=== PATIENT | male | born 1950 | race African-American/Black ===

== ENCOUNTER 2017-11-24 16:52 | Emergency (ER) | payer OTHER ==
[2017-11-24 19:07] LABS: Urine Appearance Clear; Urine Blood Negative (Negative); Urine Color Amber; Urine Ketones Negative (Negative); Urine Protein Negative (Negative); Urine Urobilinogen Positive (Negative)
[2017-11-24] MEDS ORDERED: Ciprofloxacin TAB* 500 MG PO ONE ×2 (19:12→19:16)
[2017-11-24 19:40] VITALS: BP 194/98
--- NOTE | 2017-11-25 21:19 | ED ---
Kena Lemons Rebecca, scribed for Donte Briones MD on 11/24/17 at 1728 . GI/ HPI - HPI Summary HPI Summary: Pt is a 67 y/o M who presents to ED c/o dysuria, increased urinary frequency, with decreased urine output, and penile pain. Pt reports that beginning yesterday, he has had increased urinary frequency, voiding small amount each time. Had to get up 8x in the night to urinate. Last urinated this morning at 0800, trying again at 1400 but he voided very little. Describes associated pain as pressure/aching, located at the tip of the penis. On triage, pain was severe , ranked 9/10. Sx aggravated and alleviated by nothing. He was referred by a nurse at the [facility] with a Dx of urinary retention to come to [facility] [place] ED for further workup. - History of Current Complaint Chief Complaint: EDUrogenitalProblems Time Seen by Provider: 11/24/17 17:07 Stated Complaint: UROGENITAL PROBLEMS Hx Obtained From: Patient Onset/Duration: Started Days Ago - Yesterday, Still Present Current Severity: Severe Pain Intensity: 9 Additional Locations for Males: Penis - Tip Pain Characteristics: Aching, Pressure Aggravating Factor(s): Nothing Alleviating Factor(s): Nothing PMH/Surg Hx/FS Hx/Imm Hx Cardiovascular History: Reports: Hx Hypertension Infectious Disease History: No Infectious Disease History: Denies: Traveled Outside the [place] in Last 30 Days - Family History Known Family History: Positive: Hypertension Review of Systems Negative: Fever Positive: dysuria, frequency - Increased, pain - Penile, other - Decreased urine output All Other Systems Reviewed And Are Negative: Yes Physical Exam - Summary Physical Exam Summary: VITAL SIGNS: Reviewed. GENERAL: Patient is a well-developed and nourished male who is lying comfortable in the stretcher. ~Patient is not in any acute respiratory distress. HEAD AND FACE: Normocephalic and atraumatic. EYES: PERRLA, EOMI x 2, No injected conjunctiva. EARS: Hearing grossly intact. Ear canals and tympanic membranes are WNL. MOUTH: Oropharynx within normal limits. NECK: Supple, trachea is midline, no adenopathy, no JVD. CHEST: Symmetric, no tenderness at palpation LUNGS: Clear to auscultation bilaterally. No wheezing or crackles. CVS: RRR, S1 and S2 present, no murmurs or gallops appreciated. ABDOMEN: Soft, non-tender. Distended. Positive bowel sounds. No rebound no guarding, and no masses palpated. No abdominal bruit or pulsations. EXTREMITIES: FROM in all major joints, no edema, no cyanosis or clubbing. NEURO: Alert and oriented x 3. No acute neurological deficits. Speech is normal. SKIN: Dry and warm, no rashes : Circumcised penis, both testicles are descended. No masses are appreciated. Positive cremasteric reflex. Triage Information Reviewed: Yes Vital Signs On Initial Exam: Initial Vitals Temp Pulse Resp BP Pulse Ox 97.8 F 72 16 151/92 95 11/24/17 16:57 11/24/17 16:57 11/24/17 16:57 11/24/17 16:57 11/24/17 16:57 Vital Signs Reviewed: Yes Diagnostics - Vital Signs Vital Signs Temp Pulse Resp BP Pulse Ox 11/24/17 16:57 97.8 F 72 16 151/92 95 - Laboratory Lab Results: Lab Results 11/24/17 Range/Units 18:54 Urine Color [place] Urine Appearance Clear Urine pH 5.0 (5-9) Ur Specific [place] 1.020 (1.010-1.030) Urine Protein Negative (Negative) Urine Ketones Negative (Negative) Urine Blood Negative (Negative) Urine Nitrate Positive A (Negative) Urine Bilirubin Negative (Negative) Urine Urobilinogen Positive A (Negative) Ur Leukocyte Esterase Negative (Negative) Urine WBC (Auto) Trace(0-5/hpf) (Absent) Urine RBC (Auto) 1+(3-5/hpf) A (Absent) Urine Bacteria Absent (Absent) Urine Glucose Negative (Negative) Lab Statement: Any lab studies that have been ordered have been reviewed, and results considered in the medical decision making process. Re-Evaluation - Re-Evaluation First Eval Re-Evaluation Time: 19:18 Comment: Discussed results and D/C plan with the pt. GIGU Course/Dx - Course Assessment/Plan: This patient is a 67-year-old male who presents to the emergency department with a chief complaint of burning on urination and sometimes intermittent urinary retention. Patient reports that he was able to urinate freely at 7 AM but at 2 PM he had some trouble and he was just clearing. He denies any penile discharge, he denies any lower abdominal distention of pressure. The patient was able to urinate in the ER, therefore he doesnt have any urinary retention. Also the bladder scan only showed 200 cc of urine before he urinated. After he urinated it was only 25 cc. He was given ciprofloxacin for UTI. She requested a urology referral since he is having issues urinating special ed nighttime. I discussed all the findings and test results with the patient. Patient was instructed to return to the emergency room immediately if any of the symptoms return or worsens. Plan of care was discussed with the patient and understands and agrees. All questions were answered at patient satisfaction. There were no further complaints or concerns. Lung exam before discharge: CTA B/L. Good air exchange. No wheezing or crackles heard. CVS: S1 and S2 present. No murmurs appreciated. Patient is alert and oriented x 3. Patient is hemodynamically stable. Patient will be discharged home with follow up PCP in the next 2-3 days - Diagnoses Provider Diagnoses: UTI (urinary tract infection) Discharge - Sign-Out/Discharge Documenting (check all that apply): Discharge/Admit/Transfer - Discharge - Discharge Plan Condition: Stable Disposition: HOME Prescriptions: Ciprofloxacin TAB* [Cipro 500 MG TAB*] 500 mg PO BID #10 tab Patient Education Materials: Urinary Tract Infection in Men (ED) Referrals: Rupert Meek MD [Primary Care Provider] - 3 Days Jim Murdock MD [Medical Doctor] - 3 Days Additional Instructions: RETURN TO ED FOR ANY NEW OR WORSENING SYMPTOMS. - Billing Disposition and Condition Condition: STABLE Disposition: HOME The documentation as recorded by the Kena ledezma Rebecca accurately reflects the service I personally performed and the decisions made by me, Donte Briones MD.
== END 2017-11-24 20:00 | disposition home or self-care (01) ==
LOC: ED 16:52
DX: N39.0 Urinary tract infection, site not specified (principal)
CPT/HCPCS: 81003; 81015; 87086; 99282; A9270-GY

== ENCOUNTER 2019-06-29 12:16 | Emergency (ER) | payer OTHER ==
[2019-06-29] MEDS: EPINEPHrine,Rac 2.25% NEB.SOL* 0.5 ML INH ONE (12:31)
[2019-06-29 12:56] LABS: ABS Lymphocytes 0.6 10^3/ul (1.0-4.8); ABS Monocytes 0.1 10^3/ul (0-0.8); Eosinophil % 0.1 %; Hematocrit 37 % (42-52); Lymphocyte % 6.5 %; Mean Corpuscular HGB Conc 33 g/dL (31-36); Mean Corpuscular Hemoglobin 29 pg (27-31); Mean Corpuscular Volume 87 fL (80-94); Mean Platelet Volume 7.7 fL (7.4-10.4); Platelet Count 279 10^3/uL (150-450); Red Blood Count 4.18 10^6 /uL (4.18-5.48); Red Cell Distribution Width 14 % (10-15); White Blood Count 8.6 10^3/uL (3.5-10.8)
--- NOTE | 2019-06-29 13:05 | ED ---
Shortness of Breath - HPI Summary HPI Summary: This pt is a 70 Y/O M presenting to [facility] after feeling weak, fatigued, and having a continuos episode of SOB while leaving [facility] after receiving chemotherapy at 1205 today. CAT team was called and found that the pt was visibly SOB with a wet cough and breathing. He states that he was feeling weak, SOB, and confused. He denies a fever, headache, and N/V. He states no aggravating or alleviating factors. He states that he has newly been diagnosed with lung CA. He has a SHx of smoking cigarettes everyday. - History of Current Complaint Chief Complaint: EDShortnessOfBreath Time Seen by Provider: 06/29/19 12:21 Hx Obtained From: Patient Onset/Duration: Sudden Onset Timing: Constant Current Severity: Moderate Aggravating Factors: Nothing Alleviating Factors: Nothing Associated Signs & Symptoms: Negative - fever, headache, and N/V, Cough ( Productive), Wheezing - Allergy/Home Medications Allergies/Adverse Reactions: Allergies Allergy/AdvReac Type Severity Reaction Status Date / Time No Known Allergies Allergy Verified 06/29/19 12:21 Home Medications: Home Medications Hydrocodone/Acetaminophen [[place]vere 7.5-325 Tablet] 1 each PO TID PRN 06/29/19 [ History Confirmed 06/29/19] Magnesium Oxide TAB* [MagOx 400 TAB*] 400 mg PO BID 06/29/19 [History Confirmed 06/29/19] Nabumetone TAB* [Relafen TAB*] 750 mg PO BID PRN 06/29/19 [History Confirmed 08/17] Potassium Chlor TAB* [Klor Con ER TAB*] 20 meq PO DAILY 06/29/19 [History Confirmed 06/29/19] PMH/Surg Hx/FS Hx/Imm Hx Previously Healthy: Yes Endocrine/Hematology History: Reports: Other Endocrine/Hematological Disorders - HLD Cardiovascular History: Reports: Hx Hypertension Respiratory History: Denies: Hx Asthma, Hx Chronic Obstructive Pulmonary Disease (COPD) Infectious Disease History: No Infectious Disease History: Denies: Traveled Outside the [place] in Last 30 Days - Family History Known Family History: Positive: Hypertension - Social History Alcohol Use: Weekly Alcohol Amount: drank several beers Wednesday Hx Substance Use: No Substance Use Type: Reports: None Hx Tobacco Use: Yes Smoking Status (MU): Current Every Day Smoker Review of Systems Positive: Fatigue. Negative: Fever Positive: Shortness Of Breath, Cough - wet Negative: Vomiting, Nausea Positive: Weakness. Negative: Headache All Other Systems Reviewed And Are Negative: Yes Physical Exam - Summary Physical Exam Summary: Appearance: The patient is well-nourished in no acute distress and in no acute pain. Skin: The skin is warm and dry and skin color reflects adequate perfusion. HEENT: The head is normocephalic and atraumatic. The pupils are equal and reactive. The conjunctivae are clear and without drainage. Nares are patent and without drainage. Mouth reveals moist mucous membranes and the throat is without erythema and exudate. The external ears are intact. The ear canals are patent and without drainage. The tympanic membranes are intact. Neck: The neck is supple with full range of motion and non-tender. There are no carotid bruits. There is no neck vein distension. Respiratory: Chest is non-tender. Rhoncors sounds in lungs, difficult to hear anything else, however he can speak in complete sentences Cardiovascular: Heart is regular rate and rhythm. There is no murmur or rub auscultated. There is no peripheral edema and pulses are symmetrical and equal. Abdomen: The abdomen is soft and non-tender. There are normal bowel sounds heard in all four quadrants and there is no organomegaly palpated. Musculoskeletal: There is no back tenderness noted. Extremities are non-tender with full range of motion. There is good capillary refill. There is no peripheral edema or calf tenderness elicited. Neurological: Patient is alert and oriented to person, place and time. The patient has symmetrical motor strength in all four extremities. Cranial nerves are grossly intact. Deep tendon reflexes are symmetrical and equal in all four extremities. Psychiatric: The patient has an appropriate affect and does not exhibit any anxiety or depression. Triage Information Reviewed: Yes Vital Signs On Initial Exam: Initial Vitals Temp Pulse Resp BP Pulse Ox 97.0 F 76 20 184/105 96 06/29/19 12:17 06/29/19 12:17 06/29/19 12:17 06/29/19 12:17 06/29/19 12:17 Vital Signs Reviewed: Yes Procedures - Sedation Patient Received Moderate/Deep Sedation with Procedure: No Diagnostics - Vital Signs Vital Signs Temp Pulse Resp BP Pulse Ox 06/29/19 12:36 68 18 100 06/29/19 12:25 73 19 145/86 98 06/29/19 12:21 76 13 97 06/29/19 12:17 97.0 F 76 20 184/105 96 - Laboratory Lab Results: Lab Results 06/29/19 Range/Units 12:42 WBC 8.6 (3.5-10.8) 10^3/uL RBC 4.18 (4.18-5.48) 10^6 /uL Hgb 12.0 L (14.0-18.0) g/dL Hct 37 L (42-52) % MCV 87 (80-94) fL MCH 29 (27-31) pg MCHC 33 (31-36) g/dL RDW 14 (10-15) % Plt Count 279 (150-450) 10^3/uL MPV 7.7 (7.4-10.4) fL Neut % (Auto) 92.2 % Lymph % (Auto) 6.5 % [place] % (Auto) 1.1 % Eos % (Auto) 0.1 % Baso % (Auto) 0.1 % Absolute Neuts (auto) 8.0 H (1.5-7.7) 10^3/ul Absolute Lymphs (auto) 0.6 L (1.0-4.8) 10^3/ul Absolute Monos (auto) 0.1 (0-0.8) 10^3/ul Absolute Eos (auto) 0.0 (0-0.6) 10^3/ul Absolute Basos (auto) 0.0 (0-0.2) 10^3/ul Absolute Nucleated RBC 0.0 10^3/ul Nucleated RBC % 0.0 Result Diagrams: 06/29/19 12:42 06/29/19 12:42 Lab Statement: Any lab studies that have been ordered have been reviewed, and results considered in the medical decision making process. - Radiology CXR Radiology Interpretation Completed By: Radiologist Summary of Radiographic Findings: AGAIN NOTED IS A RIGHT UPPER LUNG MASS WITH MEDIASTINAL LYMPHADENOPATHY. ED physician has reviewed this report. - CT Chest/Thorax CTA CT Interpretation Completed By: Radiologist Summary of CT Findings: 1. SLIGHTLY LIMITED EXAM, NO EVIDENCE FOR PULMONARY EMBOLISM. 2. LARGE RIGHT UPPER LOBE MASS AND PULMONARY NODULES CONSISTENT WITH THE PATIENT'S HISTORY. OF LUNG CARCINOMA. 3. LARGE MEDIASTINAL MASS ENCASING THE RIGHT MAIN PULMONARY ARTERY AND CAUSING. COMPRESSION AND SEVERE NARROWING OF THE TRACHEA AND RIGHT MAINSTEM BRONCHUS. ED physician has reviewed this process. - EKG 1244 Cardiac Rate: NL - 64 BPM EKG Rhythm: Sinus Rhythm ST Segment: Normal Ectopy: None Summary of EKG Findings: Normal sinus rhythm at 64 BPM, normal ST, no ectopy, no STEMI. Interpreted by Dr. Coulter, 06/29/2019 1247. Course/Dx - Course Course Of Treatment: Mr. Haq short of breath and hypoxic on arrival to the department. He had collapsed in the hallways in the hospital. He was kept on Vapotherm until he recovered and gradually transferred over to regular oxygen. As long as he stays quiet in the gurney is comfortable on nasal cannula. CT of his chest was obtained which shows that his mediastinal lymphadenopathy is severely compressing his lower trachea and right mainstem bronchus. I spoke with Dr. Narayanan recommended transfer for stent. I spoke with [facility] which does not do that. I spoke with [facility] who is full right now. I spoke with [facility] who is likewise full. I spoke with [facility] in [facility] in [place] who summarily refuse. I spoke with [facility] and Dr. Kenney of cardiothoracic surgery accepted transfer the patient spoke with Dr. Gaxiola in the emergency department. I think the patient is an urgent transfer but can go by ground on oxygen. - Diagnoses Provider Diagnoses: Airway obstruction, Mediastinal mass - Critical Care Time Critical Care Time: 30-74 min Discharge ED - Sign-Out/Discharge Documenting (check all that apply): Patient Departure - transferred to [facility] - Discharge Plan Condition: Stable Disposition: TRANS HIGHER LVL OF CARE FAC Referrals: Rupert Meek MD [Primary Care Provider] - - Billing Disposition and Condition Condition: STABLE Disposition: Trans Higher Lvl of Care Fac - Attestation Statements Document Initiated by Scribe: Yes Documenting Scribe: Chano Bagley Provider For Whom Cher is Documenting (Include Credential): Mario Coulter MD Scribe Attestation: Chano Lemons, scribed for Mario Coulter MD on 06/29/19 at 2051. Scribe Documentation Reviewed: Yes Provider Attestation: The documentation as recorded by the Chano ledezma accurately reflects the service I personally performed and the decisions made by me, Mario Coulter MD Status of Scribe Document: Viewed Consult Consult: Dr. Briseno, Oncology, was consulted at 1349 about admission to [facility] [place]. Briseno stated that she will talk with the produce team lead and recommended a Chest/Thorax CTA. After the chest/thorax CTA interpretation, Angi Briseno was consulted again at 1604 who recommended transferring the pt for further care. [facility] called at 1650 and stated that they were full and were unable to accept the pt. [facility] will be contacted to set up transfer. [facility] called at 1657 and began the transfer process. Dr. Ortega, surgery, from [facility], called at 1756, stated that he wanted to discuss the pt with Dr. Briseno prior to making a decision on accepting the pt. Dr. Ortega, surgery, from [facility], called at 1800, declined acceptance due to the pt needing stents. He recommended [place] and [facility]. Dr. Kenney, cardiothoraccic surgeon, and Dr. Ybarra, ED physician, accepts the pt for transfer to [facility] at 2026.
[2019-06-29 13:20] LABS: Albumin 4.2 g/dL (3.2-5.2); Albumin/Globulin Ratio 1.5 (1-3); BUN/Creatinine Ratio 20.5 (8-20); Calcium 8.3 mg/dL (8.6-10.3); EGFR African American 128.2 (>60); EGFR Non-African American 105.9 (>60); Globulin 2.8 g/dL (2-4); Potassium 4.1 mmol/L (3.5-5.0); Total Bilirubin 0.8 mg/dL (0.2-1.0)
[2019-06-29 13:28] LABS: INR 0.97 (0.82-1.09)
[2019-06-29] MEDS: Iohexol 350* (CONTRAST) 500 ML MDV IV ONE (15:30)
[2019-06-29] MEDS: Dexamethasone IV* 4 MG/ML 5 ML VIAL (20 MG) IVPB ONE (19:15)
[2019-06-29 20:50] VITALS: BP 168/81
== END 2019-06-29 21:32 | disposition short-term general hospital (02) ==
LOC: ED 12:16
DX: J98.8 Other specified respiratory disorders (principal); C38.1 Malignant neoplasm of anterior mediastinum; E78.5 Hyperlipidemia, unspecified; I10 Essential (primary) hypertension; F17.200 Nicotine dependence, unspecified, uncomplicated; Z79.899 Other long term (current) drug therapy
CPT/HCPCS: 36415; 71045; 71275; 80053; 83605; 84484; 85025; 85379; 85610; 87040; 93005; 96374; 99285; A9270-GY; J1100; Q9967

== ENCOUNTER 2019-07-29 21:42 | Emergency (ER) | payer MEDICARE, OTHER ==
[~2019-07-29 21:42] MED LIST: EPINEPHrine SYR 0.1MG/ML* SYRINGE ONE
[2019-07-29 23:29] LABS: Hematocrit 25 % (42-52); Hemoglobin 8.4 g/dL (14.0-18.0); Mean Corpuscular HGB Conc 33 g/dL (31-36); Mean Corpuscular Hemoglobin 29 pg (27-31); Mean Corpuscular Volume 88 fL (80-94); Mean Platelet Volume 6.7 fL (7.4-10.4); Platelet Count 136 10^3/uL (150-450); Red Cell Distribution Width 14 % (10-15); White Blood Count 1.2 10^3/uL (3.5-10.8)
[2019-07-29 23:34] LABS: INR 1.74 (0.82-1.09)
--- OUTSIDE RECORDS SUMMARY | 2019-07-29 23:46 | XMS REPORT | Summary of Care ---
:05/23/1949 Author Organization [facility] Address [address] [place] [address] Care Team Providers Name Role Phone Rupert Meek MD Primary Care Provider Encounter Details Date Type Department Care Team Description 06/29/2019 Hospital Encounter [address] [id number] Allergies Not on Filedocumented as of this encounter (statuses as of 07/14/2019) Medications Not on filedocumented as of this encounter (statuses as of 07/14/2019) Active Problems Not on filedocumented as of this encounter (statuses as of 07/14/2019) Social History Tobacco Use Types Packs/Day Years Used Date Never Assessed Sex Assigned at Date Recorded Not on file Job Start Date Occupation Industry Not on file Not on file Not on file Travel History Travel Start Travel End No recent travel history available. documented as of this encounter Last Filed Vital Signs Not on filedocumented in this encounter Plan of Treatment Not on filedocumented as of this encounter Results Not on filedocumented in this encounter
--- NOTE | 2019-07-29 23:47 | ED ---
Respiratory - HPI Summary HPI Summary: This patient is a 70 year old M presenting to [facility] by EMS with a chief complaint of intermittent hemoptysis since prior to arrival. Pt in ED seen by Dr. Coulter on Jun 29, 2019. Pt was very short of breath, and was found to have a large mediastinal lymphadenopathy is severely compressing his lower trachea and right mainstem bronchus. Pt was transferred to [facility] for a stent. Today pt reports that his throat was sore and felt raw, and he was forcing himself to eat as much as he could. but he could not eat meat. that hurt his throat, he was eating fruit and soft foods. Afterwards Pt threw up food , and then 20 minutes later coughed up blood. Patient denies fever, diarrhea. Pt reports two days ago he was placed on potassium and after a nurse gave him that medication mixed with juice he threw up right away. After that the nurse practitioner placed him on anti-nausea medication. Pt has been out of the hospital for 3 days and has [facility]. Pt has been receiving chemo and radiation for lung cancer. Per triage, the patient rates the pain 3/10 in severity. he has hemoptysis during history. - History of Current Complaint Chief Complaint: EDShortnessOfBreath Stated Complaint: DIFFICULTY BREATHING/COUGHING UP BLOOD PER EMS Time Seen by Provider: 07/29/19 22:48 Hx Obtained From: Patient Onset/Duration: Sudden Onset, Still Present Timing: Intermittent Episodes Lasting: Initial Severity: Mild Current Severity: Mild Pain Intensity: 3 Character: Cough (Productive) Sputum Color: Red (Blood) Aggravating Factor(s): Nothing Alleviating Factor(s): Nothing Associated Signs and Symptoms: Hemoptysis - Allergy/Home Medications Allergies/Adverse Reactions: Allergies Allergy/AdvReac Type Severity Reaction Status Date / Time No Known Allergies Allergy Verified 06/29/19 12:21 PMH/Surg Hx/FS Hx/Imm Hx Endocrine/Hematology History: Reports: Other Endocrine/Hematological Disorders - HLD Denies: Hx Diabetes Cardiovascular History: Reports: Hx Hypertension Respiratory History: Denies: Hx Asthma, Hx Chronic Obstructive Pulmonary Disease (COPD) - Cancer History Cancer Type, Location and Year: LUNG - Immunization History Date of Influenza Vaccine: Fall 2018 Infectious Disease History: No Infectious Disease History: Denies: Traveled Outside the [place] in Last 30 Days - Family History Known Family History: Positive: Hypertension - Social History Alcohol Use: None Alcohol Amount: drank several beers Wednesday Hx Substance Use: No Substance Use Type: Reports: None Hx Tobacco Use: Yes Smoking Status (MU): Former Smoker - Additional Comments History Additional Comments: PMHx : Lung Cancer Home Medications Medication Instructions Recorded Confirmed Type Atorvastatin* [Lipitor*] 80 mg PO DAILY 04/27/18 06/29/19 History Carvedilol TAB* [Coreg TAB*] 12.5 mg PO DAILY 04/27/18 06/29/19 History Lisinopril TAB* [Prinivil TAB*] 40 mg PO DAILY 04/27/18 06/29/19 History Mesalamine (NF) [Apriso (NF)] 0.375 gm PO DAILY 04/27/18 06/29/19 History Multivitamins/Minerals TAB* 1 tab PO DAILY 04/27/18 06/29/19 History [Theragran/minerals TAB*] Pantoprazole TAB * [Protonix TAB 40 mg PO DAILY 04/27/18 06/29/19 History (NF)] QUEtiapine TAB* [Seroquel 25 MG 25 mg PO BEDTIME 04/27/18 06/29/19 History TAB*] amLODIPine TAB* [Norvasc 5 mg TAB*] 10 mg PO DAILY 04/27/18 06/29/19 History Hydrocodone/Acetaminophen [[place] 1 each PO TID PRN 06/29/19 06/29/19 History 7.5-325 Tablet] Magnesium Oxide TAB* [MagOx 400 400 mg PO BID 06/29/19 06/29/19 History TAB*] Nabumetone TAB* [Relafen TAB*] 750 mg PO BID PRN 06/29/19 06/29/19 History Potassium Chlor TAB* [Klor Con ER 20 meq PO DAILY 06/29/19 06/29/19 History TAB*] Review of Systems Negative: Fever Positive: Sore Throat Positive: Other - hemoptysis Negative: Diarrhea All Other Systems Reviewed And Are Negative: Yes Physical Exam - Summary Physical Exam Summary: General: Obese elderly male, appears in mild respiratory discomfort. Cough productive of thick blood sputum during physical exam HEENT: Normocephalic, Atraumatic. Eyes: Conjuctiva normal, PERRL. Oropharynx: Clear, mucous membranes moist, (-) exudates. Neck: Soft, FROM, (-) lymphadenopathy, (-) thyromegaly, (-) JVD. Cardiovascular: Normal sinus rhythm, (-) murmur. Lungs: Decreased breath sound bilaterally with respiratory wheezing (-) rales, ( -) rhonchi. Abdomen: Soft, non-tender, non-distended, (-) organomegaly, normal bowel sounds. Back: (-) CVA tenderness Extremities: +1 lower extremity edema. Skin: Warm, dry, (-) rash. Neuro: Alert and oriented x3, moves all extremities equally. No ataxia. No gait disturbance. No sensory deficit. No amnesia. Psychiatric: Mood normal, affect normal. Triage Information Reviewed: Yes Vital Signs On Initial Exam: Initial Vitals Temp Pulse Resp BP Pulse Ox 97.4 F 102 20 111/75 96 07/29/19 21:45 07/29/19 21:45 07/29/19 21:45 07/29/19 21:45 07/29/19 21:45 Vital Signs Reviewed: Yes Procedures - Sedation Patient Received Moderate/Deep Sedation with Procedure: No Diagnostics - Vital Signs Vital Signs Temp Pulse Resp BP Pulse Ox 07/29/19 22:32 100 96/71 96 07/29/19 22:01 101 126/74 96 07/29/19 22:00 103 96 07/29/19 21:45 97.4 F 102 20 111/75 96 - Laboratory Lab Results: Lab Results 07/29/19 07/29/19 Range/Units 23:09 23:09 WBC 1.2 L (3.5-10.8) 10^3/uL RBC 2.90 L (4.18-5.48) 10^6 /uL Hgb 8.4 L (14.0-18.0) g/dL Hct 25 L (42-52) % MCV 88 (80-94) fL MCH 29 (27-31) pg MCHC 33 (31-36) g/dL RDW 14 (10-15) % Plt Count 136 L (150-450) 10^3/uL MPV 6.7 L (7.4-10.4) fL Neut % (Auto) Pending Lymph % (Auto) Pending [place] % (Auto) Pending Eos % (Auto) Pending Baso % (Auto) Pending Absolute Neuts (auto) Pending Absolute Lymphs (auto) Pending Absolute Monos (auto) Pending Absolute Eos (auto) Pending Absolute Basos (auto) Pending Absolute Nucleated RBC Pending Nucleated RBC % Pending INR (Anticoag Therapy) 1.74 H (0.82-1.09) Result Diagrams: 07/29/19 23:09 07/29/19 23:09 Lab Statement: Any lab studies that have been ordered have been reviewed, and results considered in the medical decision making process. - Radiology CXR Radiology Interpretation Completed By: ED Physician Summary of Radiographic Findings: CXR reveals per ED physician no acute changes , widened mediastinum, no obvious infiltrate or pleural effusion. Pending official radiology report. - EKG 2238 Cardiac Rate: NL EKG Rhythm: Sinus Rhythm Summary of EKG Findings: EKG at 2238 reveals normal sinus rhythm with rate of 97 BPM, ST depression in V4. No STEMI. This EKG was reviewed and interpreted by Dr. Santamaria. Re-Evaluation - Re-Evaluation First Eval Re-Evaluation Time: 00:22 Comment: IO placed in left anterior tibia Disposition - Course Course Of Treatment: 70-year-old male sent from rehabilitation for coughing up blood. Initially patient was not able to differentiate whether he was coughing up blood or throwing up blood. He recently was transferred from this hospital to [facility] due to a large mediastinal mass that was compressing his trachea and right main bronchus. He was sent there for stent placement. Patient states he was discharged 3 days ago to rehabilitation locally. Today he noted a sore throat. Was avoiding meat but eating soft foods earlier today. Then had episode of vomiting shortly thereafter. Then started coughing up blood. He has episode of coughing during history bringing up bloody sputum. No fevers. He is just slightly tachycardic upon arrival with pulse rate less than 110. he has normal respirations. Does not appear to be septic. on physical exam he has coarse breath sounds bilaterally. rhonchorous throughout. Wheezes. workup ordered. While awaiting laboratory and chest x-ray, patient was requesting nurse to help him urinate. She was giving him a urinal. He then had a massive amount of hemorrhage with coughing and went unresponsive. Lost control of urine. heart rate became bradycardic. Continue to [place] down till he was asystolic. no pulses appreciated and CPR was started. patient's IV failed to work. IO was placed in the left tibia. epinephrine was given. CPR was continued. Patient remained asystolic. No shockable rhythm. No response to epinephrine or fluids. resuscitation was stopped at 0033. I spoke with patient's next of kin, broth Matheus in [place]. Patient lives in [place]. title insurance examiner was called. Body was placed on hold. - Differential Dx - Cardiopulmonary Differential Diagnoses - Cardiopulmonary: Atrial Flutter - Diagnoses Provider Diagnoses: Massive hemoptysis, Cardiopulmonary arrest During the Visit The Following Alert/Code Occurred: ABC Alert - 00:25 - Physician Notifications Discussed Care Of Patient With: Matheus Cancino - brother in [place] Time Discussed With Above Provider: 00:38 Instructed by Provider To: Other Discharge ED - Sign-Out/Discharge Documenting (check all that apply): Patient Departure - - 00:33 - Discharge Plan Condition: Disposition: Referrals: Rupert Meek MD [Primary Care Provider] - - Billing Disposition and Condition Condition: Disposition: - Attestation Statements Document Initiated by Scribe: Yes Documenting Scribe: Marina Harrington Provider For Whom Scribe is Documenting (Include Credential): Dr. Meghan Santamaria MD Scribe Attestation: Marina Lemons scribed for Dr. Meghan Santamaria MD on 07/30/19 at 0607. Scribe Documentation Reviewed: Yes Provider Attestation: The documentation as recorded by the Marina ledezma accurately reflects the service I personally performed and the decisions made by me, Dr. Meghan Santamaria MD Status of Scribe Document: Viewed
[2019-07-29 23:50] LABS: Albumin 3.4 g/dL (3.2-5.2); BUN/Creatinine Ratio 17.4 (8-20); Calcium 8.6 mg/dL (8.6-10.3); EGFR African American 106.1 (>60); EGFR Non-African American 87.7 (>60); Globulin 3.5 g/dL (2-4); Potassium 3.6 mmol/L (3.5-5.0); Total Bilirubin 0.5 mg/dL (0.2-1.0); Total Protein 6.9 g/dL (6.4-8.9)
[2019-07-29 23:51] LABS: Troponin I 0.01 ng/mL (<0.03)
[2019-07-29 23:57] LABS: ABS Lymphocytes 0.1 10^3/ul (1.0-4.8); ABS Monocytes 0.1 10^3/ul (0-0.8); Eosinophil % 0.8 %; Lymphocyte % 7.9 %; Nucleated Red Blood Cells % 0.1
[2019-07-30 00:48] VITALS: BP 124/91
--- NOTE | 2019-08-04 06:08 | ED ---
Imaging and Labs Follow Up Follow Up Type: Labs/Cultures Labs/Culture Result: Blood culture preliminary shows no growth in 3-4 bottles. One of 4 bottles shows an positive cocci reasonably strep positive for Fusobacterium nucleatum. Patient Communication/Plan: Pt . nothing further at this time. Provider Diagnoses: Massive hemoptysis, Cardiopulmonary arrest
== END 2019-07-30 00:33 | disposition expired ==
LOC: ED 21:42
DX: I46.9 Cardiac arrest, cause unspecified (principal); R04.2 Hemoptysis; I10 Essential (primary) hypertension; R06.02 Shortness of breath; J02.9 Acute pharyngitis, unspecified; Z87.891 Personal history of nicotine dependence; Z85.118 Personal history of other malignant neoplasm of bronchus and lung; Z79.811 Long term (current) use of aromatase inhibitors; Z79.899 Other long term (current) drug therapy
CPT/HCPCS: 36415; 71046; 80053; 83605; 83880; 84484; 85025; 85060; 85610; 87040; 87076; 87205; 93005; 99285; J0171